=== PATIENT | male | born 1955 | race Caucasian/White ===

== ENCOUNTER → 2016-09-29 | Outpatient (CLI) | payer BC ==
[~2016-09-29] MED LIST: ADVIL200 MG PO; ASCORBIC ACID500 MG PO; CPAP INH; CRANBERRY TABL1 EACH PO; GLUCOSAMINE-CH1 EA29 PO; HYDRODIURIL12.5 MG PO; LIPITOR40 MG PO; LOTENSIN40 MG PO; OMEPRAZOLE40 MG PO; OXYGEN M-15 INH; PEPCID20 MG PO; PREPARATION H1 EAC1 R; PROCTOZONE-HC30 GM TOP; SAW PALMETTO450 MG PO; SUPER CAL-MAG1 EACH PO; TOPROL XL 5050 MG PO; TYLENOL EXTRA500 MG PO
== END | disposition disaster alternative care site (69) ==
LOC: GRAD 12:43
DX: M54.5 Low back pain (principal); M79.605 Pain in left leg; M47.896 Other spondylosis, lumbar region; M51.86 Other intervertebral disc disorders, lumbar region

== ENCOUNTER → 2016-10-09 | Day surgery (SDC) | payer BC | END | disposition disaster alternative care site (69) | LOC: GSDC 10-06 16:00 → GPOC 10-06 16:00 → GSDC 12:43 | PROC: 3E0R33Z Introduction of Anti-inflammatory into Spinal Canal, Percutaneous Approach (ICD-10-PCS; principal; 2016-10-09) | DX: M46.96 Unspecified inflammatory spondylopathy, lumbar region (principal); I10 Essential (primary) hypertension; E78.00 Pure hypercholesterolemia, unspecified; G43.909 Migraine, unspecified, not intractable, without status migrainosus; K21.9 Gastro-esophageal reflux disease without esophagitis; Z86.14 Personal history of Methicillin resistant Staphylococcus aureus infection; Z98.890 Other specified postprocedural states | CPT/HCPCS: J1030; J1040 ==